=== PATIENT | female | born 1950 | race Caucasian/White ===

== ENCOUNTER 2020-09-21 13:03 | Inpatient (IN) | payer MEDICARE ==
[2020-09-21] MEDS ORDERED: Albuterol 200 PUFF (6.7GM INHALER) ONE (13:51)
[2020-09-21] MEDS ORDERED: Diltiazem 125 MG/25 ML ONE (13:59)
[2020-09-21 14:29] LABS: #Lymphocytes 1.5 thou/uL (1.20-3.40); #Monocytes 0.7 thou/uL (0.11-0.59); #Neutrophils 6.6 thou/uL (1.40-6.50); %Basophils 0.5 % (0.0-1.0); %Eosinophils 0.2 % (0.0-10.0); %Lymphocytes 16.9 % (21.0-51.0); %Monocytes 7.9 % (0.0-10.0); %Neutrophils 74.5 % (42.0-75.0); Hemoglobin 10.5 g/dL (12.0-16.0); Mean Corpuscular HGB CONC 31.5 g/dL (32.0-36.0); Mean Platelet Volume 8.9 fL (7.4-10.4); Platelet Count 241 thou/uL (130-400); RBC Distribution Width 13.1 % (11.5-14.5); Red Blood Cell (RBC) Count 3.27 mill/uL (4.20-5.40); White Blood Cell (WBC) Count 8.8 thou/uL (4.8-10.8)
--- NOTE | 2020-09-21 14:34 | RAD ---
XR Chest 1 View Portable HISTORY: Dyspnea COMPARISON: 06/10/2020 FINDINGS: The lungs are hypoexpanded. The heart size is stable. No pneumothoraces or large effusions are seen. Small effusions cannot be excluded. There are parenchymal densities in the left lung base.
[2020-09-21 14:55] LABS: ALT (SGPT) 13 U/L (8-55); AST (SGOT) 16 U/L (5-34); Albumin 3.2 g/dL (3.4-4.8); Alkaline Phosphatase 85 U/L (40-110); Anion Gap 13 mmol/L (10-20); BUN (Urea Nitrogen) 28 mg/dL (9.8-20.1); Bilirubin, Total 0.3 mg/dL (0.2-1.2); CK (CPK) 12 U/L (29-168); Calc. Creatinine Clearance 0 mL/min (70-130); Calcium 8.6 mg/dL (7.8-10.44); Carbon Dioxide 34 mmol/L (23-31); Chloride 97 mmol/L (98-107); Globulin 3.2 g/dL (2.4-3.5); Glucose 150 mg/dL (80-115); Potassium 6.1 mmol/L (3.5-5.1); Protein, Total 6.4 g/dL (6.0-8.3); Sodium 138 mmol/L (136-145)
[2020-09-21] MEDS ORDERED: Diltiazem 125 MG in Sodium Chloride 0.9% 100 ML IVPB SCH (16:45)
[2020-09-21] MEDS ORDERED: Ondansetron PF 4 MG/2 ML Vial IVP PRN (16:54)
[2020-09-21] MEDS ORDERED: Ondansetron ODT 4 MG TAB PO PRN (16:54)
[2020-09-21] MEDS ORDERED: Acetaminophen 325 MG TAB PO PRN (16:54)
[2020-09-21 17:33] LABS: Lactic Acid 0.9 mmol/L (0.5-2.2)
[2020-09-21 17:35] LABS: Troponin I 0.014 ng/mL (< 0.028)
--- NOTE | 2020-09-21 18:27 | HP ---
CHIEF COMPLAINT: Rapid heartbeat. HISTORY OF PRESENT ILLNESS: The history of present illness is very limited as the patient is not a good historian. She is a 70-year-old female who recently had a stroke. She could not really tell me exactly what month the stroke was in. She says it was June, July, August, but was not more specific than that, and with a stroke, she had right-sided weakness. She was transitioned over to the [facility], where apparently there they noticed that she had a rapid heartbeat and her blood pressure was not right and for this reason, they sent her over to the emergency room. There, it was found she was in atrial fibrillation with rapid ventricular response. She was given 10 mg of Cardizem IV, in which her heart rate improved. She is being admitted for further evaluation. I reviewed her records in our electronic system and could not see the prior admission at least at this time, it is unclear whether or not she has another chart under a slightly different name or birthday or the charts have not been merged. REVIEW OF SYSTEMS: All systems were reviewed and are negative except for that mentioned in the history of present illness. PAST MEDICAL HISTORY: Significant for cerebrovascular accident, atrial fibrillation, left hemiplegia, obesity, dyspepsia, and anemia. PAST SURGICAL HISTORY: Negative. ALLERGIES: NO KNOWN DRUG ALLERGIES. SOCIAL HISTORY: She is , has one child. She is a nonsmoker and she drinks 1 to 2 drinks a day occasionally. Her daughter, Lili Kidd would be her surrogate decision maker and she is a full code. FAMILY HISTORY: Significant for atrial fibrillation in her mother and also other heart trouble and a brain tumor. MEDICATIONS: Her medications are taken from the emergency room records and include: 1. Eliquis 5 mg daily. 2. Aspirin 81 mg daily. 3. Atorvastatin 10 mg daily. 4. Metoprolol 100 mg once a day. PHYSICAL EXAMINATION: GENERAL: She is awake and alert. She is oriented to person and place, but her sense of time is a bit off. She is obese and appears chronically ill. HEENT: Her pupils are equal, round, and reactive. Extraocular muscles are intact. Her sclerae anicteric. Throat, she has poor dentition. NECK: There is no adenopathy. No bruits. LUNGS: Clear to auscultation. No wheezing. No rales. CARDIOVASCULAR: Heart rate is rapid and irregular, and there was a grade 2/6 systolic murmur. ABDOMEN: Obese, soft, nontender, and nondistended. Positive for bowel sounds. No rebound or guarding. EXTREMITIES: There is round 2+ pitting edema. There is no calf tenderness. No joint effusions. NEUROLOGIC: Her muscle strength is 4/5 in the upper and lower extremity on the right. However, on the left, it is 5/5 and her cranial nerves are intact. SKIN AND INTEGUMENT: She has some mycotic nails, but otherwise no other significant lesions. LABORATORY DATA: On the CBC, the white blood cell count is 8.8, hemoglobin is 10.5, hematocrit is 33.2, platelet count is 241. Sodium is 138, potassium 6.1, chloride is 97, CO2 is 34, BUN of 28, creatinine 1.02, glucose is 150, and her proBNP is 1422. Her EKG was atrial fibrillation. She had a low voltage and no appreciable ST wave changes. On her EKG, she had a poor inspiratory effort. There are bilateral pleural effusions as well as some mild parenchymal disease. ASSESSMENT: This is a pleasant 70-year-old female, who presents with atrial fibrillation with rapid ventricular response. Also, she has been found to be hyperkalemic what appears to be some very mild renal insufficiency. She will be admitted. Since her heart rate has gone back up into the 120s, we will start her on a Cardizem drip as her blood pressure tolerates. Get an echocardiogram and continue Eliquis and consult Cardiology. Also get thyroid functions if these have not been done already. 1. Hyperkalemia. It is unclear the etiology. I do not see any medications in her profile that should precipitate this and her GFR is around 54. We will give her a dose of Kayexalate and recheck the potassium. If this remains elevated, we will consider Nephrology consult. 2. History of cerebrovascular accident with right-sided hemiplegia. We will continue her PT and OT. 3. Chronic anemia. This appears to be clinically stable and is macrocytic. We will review her records to see if this has been evaluated in the past. Job ID: [id number]
[2020-09-21 20:14] LABS: Potassium 5.9 mmol/L (3.5-5.1)
[2020-09-21 20:39] LABS: Troponin I 0.024 ng/mL (< 0.028)
[2020-09-21] MEDS: Famotidine 20 MG TAB PO SCH (22:50)
[2020-09-21] MEDS: Apixaban 5 MG TAB PO SCH (22:50)
[2020-09-22 04:21] LABS: #Lymphocytes 1.2 thou/uL (1.20-3.40); #Monocytes 0.5 thou/uL (0.11-0.59); #Neutrophils 3.6 thou/uL (1.40-6.50); %Basophils 0.4 % (0.0-1.0); %Eosinophils 0.4 % (0.0-10.0); %Lymphocytes 21.7 % (21.0-51.0); %Monocytes 10.1 % (0.0-10.0); %Neutrophils 67.4 % (42.0-75.0); Hemoglobin 10.3 g/dL (12.0-16.0); Mean Corpuscular HGB CONC 30.5 g/dL (32.0-36.0); Mean Corpuscular Hemoglobin 31.3 pg (27.0-31.0); Mean Platelet Volume 9.2 fL (7.4-10.4); Platelet Count 185 thou/uL (130-400); Red Blood Cell (RBC) Count 3.29 mill/uL (4.20-5.40); White Blood Cell (WBC) Count 5.3 thou/uL (4.8-10.8)
[2020-09-22 04:48] LABS: Anion Gap 13 mmol/L (10-20); BUN (Urea Nitrogen) 31 mg/dL (9.8-20.1); Calc. Creatinine Clearance 98 mL/min (70-130); Calcium 8.5 mg/dL (7.8-10.44); Carbon Dioxide 33 mmol/L (23-31); Cardiac Risk 3.2 (Less than 4.5); Chloride 100 mmol/L (98-107); Cholesterol 111 mg/dl (< 200 Desired); Glucose 93 mg/dL (80-115); HDL Cholesterol 35 mg/dL (>60 Neg Risk); LDL Cholesterol, Calculated 54 mg/dL; Potassium 5.1 mmol/L (3.5-5.1); Sodium 141 mmol/L (136-145); Triglycerides 111 mg/dL (Less than 150)
[2020-09-22] MEDS ORDERED: FLU VACC QS2020-21(65YR UP)/PF 240 MCG/0.7 ML SYRINGE IM ONE (09:00)
[2020-09-22] MEDS ORDERED: Digoxin 0.5 MG/2 ML AMP SLOW IVP SCH (09:15)
--- NOTE | 2020-09-22 09:22 | CON ---
DATE OF CONSULTATION: HISTORY OF PRESENT ILLNESS: The patient is a 70-year-old woman with a history of atrial fibrillation and cerebrovascular accident, who presented with palpitations. The patient states that several years ago she was diagnosed with atrial fibrillation. She states she has previously undergo several electrical cardioversions. She has been on chronic anticoagulation therapy. She had difficulty obtaining Eliquis and presented a few months ago with a cerebrovascular accident in [place]. The patient was restarted on Eliquis. The patient reported having increasing palpitations. She was noted to have a rapid irregular heart rhythm and she was presented for further evaluation. The patient denied having any chest pain or dyspnea. PAST MEDICAL HISTORY: 1. Cerebrovascular accident. 2. Hypertension. 3. Morbid obesity. 4. Left hemiplegia. PAST SURGICAL HISTORY: None. ALLERGIES: NONE. MEDICATIONS: 1. Eliquis 5 daily. 2. Aspirin 81 daily. 3. Lipitor 10 q.h.s.. 4. Metoprolol 100 XL daily. REVIEW OF SYSTEMS: Ten-point system otherwise unremarkable. No history of easy bruising or bleeding. PHYSICAL EXAMINATION: GENERAL: This is an obese woman, in no acute distress. VITAL SIGNS: Blood pressure of 114/66. HEART: Rate is irregular rate and rhythm with normal S1 and S2. ABDOMEN: Markedly distended. EXTREMITIES: Showed mild bilateral edema. VASCULAR: Radial pulses 2+. LABORATORY DATA: White blood cell count 5.3, hemoglobin 10.3, hematocrit 33.9, platelets 185. Sodium is 141, potassium 5.1, chloride 100, bicarbonate 33, BUN 31, creatinine 0.81, glucose is 93. Troponin 0.024. EKG atrial fibrillation with a rapid ventricular response. IMPRESSION: 1. Atrial fibrillation with a rapid ventricular response. 2. History of cerebrovascular accident. 3. Hypertension. 4. Left hemiplegia. 5. Morbid obesity. PLAN: This patient presents with recurrent atrial fibrillation. From a cardiac standpoint, her blood pressure is low and we would continue the patient on low- dose IV Cardizem. If the patient's heart rate is uncontrolled, we may need to consider repeat electrocardioversion. We will check the patient's echocardiogram. We will follow this patient with you through her hospitalization. Job ID: [id number] MTDD
[2020-09-22] MEDS: Apixaban 5 MG TAB PO SCH ×2 (09:56→20:47)
[2020-09-22] MEDS: Famotidine 20 MG TAB PO SCH ×2 (09:56→20:46)
--- NOTE | 2020-09-22 12:02 | PQF ---
CLINICAL DOCUMENTATION CLARIFICATION FORM: Dear Dr. NAVIN MORILLO Date: 09-22-20 Please exercise your independent, professional judgment in responding to the clarification form. Clinical indicators are provided on the bottom of this form for your review. Please check appropriate box(es): [ ] Acute Renal Failure (ARF) / Acute Kidney Injury (MARIA R) [ ] Insignificant Lab Values [ X] Other diagnosis hyperkalemia____ [ ] Unable to determine In addition, please specify: Present on Admission (POA): [ ] Yes [ X ] No [ ] Unable to determine For continuity of documentation, please document condition throughout progress notes and discharge summary. Thank You. To be completed by CDI/Coding staff for physician review: CLINICAL INDICATORS - SIGNS / SYMPTOMS / LABS / RESULTS AND LOCATION IN MR: GFR: 09-21-20: 54 09-22-20: 70 CREATININE: 09-21-20: 1.02 BUN: 09-21-20: 28 09-22-20: 31 H&P 09-21-20: A FIB WITH RVR. ALSO, SHE HAS BEEN FOUND TO BE HYPOKALEMIC WHAT APPEARS TO BE SOME VERY MILD RENAL INSUFFICIENCY. HYPERKALEMIA. IT IS UNCLEAR THE ETIOLOGY. I DO NOT SEE ANY MEDICATIONS IN HER PROFILE THAT SHOULD PRECIPITATE THIS AND HER GFR IS AROUND 54. WE WILL GIVE HER A DOSE OF KAYEXALATE AND RECHECK THE POTASSIUM. IF THIS REMAINS ELEVATED, WE WILL CONSIDER NEPHROLOGY CONSULT. RISK FACTORS / RESULTS AND LOCATION IN MR: H&P 09-21-20: A FIB WITH RVR. ALSO, SHE HAS BEEN FOUND TO BE HYPOKALEMIC WHAT APPEARS TO BE SOME VERY MILD RENAL INSUFFICIENCY. HYPERKALEMIA. IT IS UNCLEAR THE ETIOLOGY. I DO NOT SEE ANY MEDICATIONS IN HER PROFILE THAT SHOULD PRECIPITATE THIS AND HER GFR IS AROUND 54. WE WILL GIVE HER A DOSE OF KAYEXALATE AND RECHECK THE POTASSIUM. IF THIS REMAINS ELEVATED, WE WILL CONSIDER NEPHROLOGY CONSULT. TREATMENTS / RESULTS AND LOCATION IN MR: H&P 09-21-20: WE WILL CONSIDER NEPHROLOGY CONSULT. MONITORING LABS 09-21-20 AND 09-22-20 National Kid[employer] Guidelines for CKD Staging Stage I Kidney damage with normal or increased GFR GFR > 90 Stage II Kidney damage with mildly decreased GFR GFR 60-89 Stage III Kidney damage with moderately decreased GFR GFR 30-59 Stage IV Kidney damage with severely decreased GFR GFR 16-29 Stage V Kidney failure GFR<15 ESRD End Stage Renal Disease On dialysis Acute Renal Failure/Acute Kidney Failure defined as: Increases in SCr by (>) 0.3 mg/dl within 48 hours OR- Increases in SCr by (>) 1.5 times baseline, known or presumed to have occurred within the prior 7 days OR- Urine volume < 0.5 ml/kg/hour for 6 hours (KDIGO supplement 2012 for RIFLE/RICK criteria) CDS Signature: Maude Thomson Phone #: [phone] Date: 09-22-20 This is a permanent part of the Medical Record [facility]
[2020-09-22] MEDS: Digoxin 0.5 MG/2 ML AMP SLOW IVP SCH ×2 (12:13→14:18)
--- NOTE | 2020-09-22 16:50 | PDOC.HOSPP ---
- Subjective Encounter Date: 09/22/20 Encounter Time: 10:00 Subjective: Afib: The patient is still in afib. She states she had palpitations for a few days. No chest pain, no dizziness or lightheadedness. She is on diltiazem drip at 5 /hour She doesn't drink coffee, tea, do drugs She said she was at rehab prior to this, but was unable to state the reason - Objective Vital Signs & Weight: Vital Signs (12 hours) Temp Pulse Resp BP Pulse Ox 09/22/20 16:00 97.9 F 107 H 16 103/66 95 09/22/20 14:18 107 H 09/22/20 12:13 107 H 09/22/20 12:00 97.9 F 113 H 16 120/72 94 L 09/22/20 09:56 107 H 09/22/20 07:56 95 09/22/20 07:50 97.5 F L 107 H 16 114/66 98 Weight Admit Weight 211 lb 12.8 oz Weight 211 lb 12.8 oz I&O: 09/21/20 09/22/20 09/23/20 06:59 06:59 06:59 Intake Total 380 Balance 380 Result Diagrams: 09/22/20 03:53 09/22/20 03:53 Additional Labs: Accuchecks 09/21/20 20:54 POC Glucose 83 Hospitalist ROS - Review of Systems Constitutional: denies: fever, chills - Medication Medications: Active Medications Generic Name Dose Route Start Last Admin Trade Name Freq PRN Reason Stop Dose Admin Apixaban 5 mg 09/21/20 21:00 09/22/20 09:56 Apixaban 5 Mg Tab PO 5 mg BID DIANE Administration Famotidine 20 mg 09/21/20 21:00 09/22/20 09:56 Famotidine 20 Mg Tab PO 20 mg BID DIANE Administration - Exam General Appearance: NAD, awake alert Eye: PERRL, anicteric sclera ENT: normocephalic atraumatic, no oropharyngeal lesions Neck: supple, no JVD Heart: no murmur Heart - other findings: irregularly irregular Respiratory: CTAB, no wheezes, no rales, no ronchi Gastrointestinal: soft, non-tender, non-distended, normal bowel sounds Extremities: no cyanosis, no clubbing, no edema Skin: normal turgor, no lesions, no rashes Neurological: cranial nerve grossly intact, normal sensation to touch, no focal deficits, no new deficit Neurological - other findings: mild trouble with word finding. Hosp A/P - Plan ECHO: moderate MR, moderate TR, EF 55-60% This is a 70 year old female who presented to the hospital with atrial fibrillation Atrial fibrillation - she is on diltiazem drip at 5/hour - she was started on digoxin with cardiology. Will add oral diltiazem, attempt to wean off the drip - continue aspirin/eliquis Recent stroke - continue aspirin andeliquis Macrocytic anemia - hemoglobin 10, MCV 103. Check vitamin B12/folate/ TSH
[2020-09-23 04:49] LABS: Hemoglobin 10.5 g/dL (12.0-16.0); Mean Corpuscular HGB CONC 31.1 g/dL (32.0-36.0); Mean Corpuscular Hemoglobin 31.3 pg (27.0-31.0); Mean Platelet Volume 9.5 fL (7.4-10.4); Platelet Count 207 thou/uL (130-400); RBC Distribution Width 12.9 % (11.5-14.5); Red Blood Cell (RBC) Count 3.36 mill/uL (4.20-5.40); White Blood Cell (WBC) Count 7.1 thou/uL (4.8-10.8)
[2020-09-23 05:12] LABS: Anion Gap 13 mmol/L (10-20); BUN (Urea Nitrogen) 21 mg/dL (9.8-20.1); Calc. Creatinine Clearance 113 mL/min (70-130); Calcium 8.4 mg/dL (7.8-10.44); Carbon Dioxide 32 mmol/L (23-31); Chloride 98 mmol/L (98-107); Glucose 82 mg/dL (80-115); Potassium 4.6 mmol/L (3.5-5.1); Sodium 138 mmol/L (136-145)
[2020-09-23 05:34] LABS: Thyroid Stimulating Hormone 1.1604 uIU/mL (0.35-4.94)
[2020-09-23] MEDS: Famotidine 20 MG TAB PO SCH ×2 (08:48→20:00)
[2020-09-23] MEDS: Apixaban 5 MG TAB PO SCH ×2 (08:49→20:00)
[2020-09-23] MEDS ORDERED: Digoxin 0.5 MG/2 ML AMP SLOW IVP SCH (09:00)
--- NOTE | 2020-09-23 13:03 | PDOC.HOSPP ---
- Subjective Encounter Date: 09/23/20 Encounter Time: 13:00 Subjective: F/u: afib The patient is off cardizem drip. Heart rate is in the 80's. Per cardiology he plans to cardiovert her on Friday The patient denies palpitations or shortness of breath She is on 3.5L of oxygen saturating 100%. She denies cough, chest pain. - Objective Vital Signs & Weight: Vital Signs (12 hours) Temp Pulse Resp BP Pulse Ox 09/23/20 08:49 97 09/23/20 08:00 97.7 F 97 18 130/71 97 09/23/20 04:00 97.5 F L 108 H 21 H 119/63 98 Weight Admit Weight 211 lb 12.8 oz Weight 214 lb 8 oz I&O: 09/22/20 09/23/20 09/24/20 06:59 06:59 06:59 Intake Total 380 290 597 Balance 380 290 597 Result Diagrams: 09/23/20 03:54 09/23/20 03:54 Hospitalist ROS - Review of Systems Constitutional: denies: fever, chills - Medication Medications: Active Medications Generic Name Dose Route Start Last Admin Trade Name Freq PRN Reason Stop Dose Admin Apixaban 5 mg 09/21/20 21:00 09/23/20 08:49 Apixaban 5 Mg Tab PO 5 mg BID DIANE Administration Digoxin 0.25 mg 09/23/20 09:00 09/23/20 08:49 Digoxin 0.5 Mg/2 Ml Amp SLOW IVP 0.25 mg DAILY DIANE Administration Famotidine 20 mg 09/21/20 21:00 09/23/20 08:48 Famotidine 20 Mg Tab PO 20 mg BID DIANE Administration - Exam General Appearance: NAD, awake alert Eye: PERRL, anicteric sclera ENT: normocephalic atraumatic, no oropharyngeal lesions Neck: no JVD Heart: RRR, no murmur, no gallops, no rubs Respiratory: CTAB, no wheezes, no rales, no ronchi Gastrointestinal: soft, non-tender, non-distended, normal bowel sounds Extremities: no cyanosis, no clubbing, no edema Skin: normal turgor, no lesions, no rashes Hosp A/P - Plan ECHO: moderate MR, moderate TR, EF 55-60% This is a 70 year old female who presented to the hospital with atrial fibr illation Atrial fibrillation -she is off cardizem drip. Continue digoxin . Cardiology plans to cardiovert her on Friday Recent stroke - continue aspirin andeliquis Macrocytic anemia - hemoglobin 10, MCV 103. Vitamin B12/folate/TSH normal
[2020-09-24 04:36] LABS: #Lymphocytes 1.2 thou/uL (1.20-3.40); #Monocytes 0.5 thou/uL (0.11-0.59); %Basophils 0.2 % (0.0-1.0); %Eosinophils 0.1 % (0.0-10.0); %Lymphocytes 21.1 % (21.0-51.0); %Monocytes 9.1 % (0.0-10.0); %Neutrophils 69.6 % (42.0-75.0); Hemoglobin 11.2 g/dL (12.0-16.0); Mean Corpuscular HGB CONC 31.7 g/dL (32.0-36.0); Mean Corpuscular Hemoglobin 31.8 pg (27.0-31.0); Mean Platelet Volume 9.3 fL (7.4-10.4); Platelet Count 193 thou/uL (130-400); Red Blood Cell (RBC) Count 3.51 mill/uL (4.20-5.40); White Blood Cell (WBC) Count 5.7 thou/uL (4.8-10.8)
[2020-09-24 04:58] LABS: Anion Gap 11 mmol/L (10-20); BUN (Urea Nitrogen) 16 mg/dL (9.8-20.1); Calc. Creatinine Clearance 117 mL/min (70-130); Calcium 8.4 mg/dL (7.8-10.44); Carbon Dioxide 34 mmol/L (23-31); Chloride 99 mmol/L (98-107); Glucose 83 mg/dL (80-115); Magnesium 1.8 mg/dL (1.6-2.6); Potassium 4.8 mmol/L (3.5-5.1); Sodium 139 mmol/L (136-145)
[2020-09-24] MEDS: Famotidine 20 MG TAB PO SCH ×2 (08:37→20:26)
[2020-09-24] MEDS: Apixaban 5 MG TAB PO SCH ×2 (08:38→20:26)
--- NOTE | 2020-09-24 14:44 | PDOC.HOSPP ---
- Subjective Encounter Date: 09/24/20 Subjective: Doing very well. No complaints. No chest pain. - Objective Vital Signs & Weight: Vital Signs (12 hours) Temp Pulse Resp BP Pulse Ox 09/24/20 12:00 88 133/77 09/24/20 08:00 97.6 F 87 17 144/82 H 96 09/24/20 03:07 97.8 F 89 18 110/73 97 Weight Admit Weight 211 lb 12.8 oz Weight 214 lb 15.211 oz I&O: 09/23/20 09/24/20 09/25/20 06:59 06:59 06:59 Intake Total 290 597 Output Total 575 Balance 290 597 -575 Result Diagrams: 09/24/20 03:54 09/24/20 03:54 Hospitalist ROS - Medication Medications: Active Medications Generic Name Dose Route Start Last Admin Trade Name Freq PRN Reason Stop Dose Admin Acetaminophen 650 mg 09/21/20 16:54 09/23/20 20:00 Acetaminophen 325 Mg Tab PO 650 mg Q4H PRN Administration Headache/Fever/Mild Pain (1-3) Apixaban 5 mg 09/21/20 21:00 09/24/20 08:38 Apixaban 5 Mg Tab PO 5 mg BID DIANE Administration Famotidine 20 mg 09/21/20 21:00 09/24/20 08:37 Famotidine 20 Mg Tab PO 20 mg BID DIANE Administration Metoprolol Succinate 50 mg 09/23/20 21:00 09/24/20 08:38 Metoprolol Succinate Xl 50 Mg Tab PO 50 mg BID DIANE Administration Sodium Chloride 10 ml 09/23/20 21:00 09/24/20 08:37 Flush - Normal Saline 10 Ml Syringe IVF 10 ml Q12HR DIANE Administration - Exam General Appearance: NAD, awake alert Heart: no murmur, no gallops, no rubs, irregular Respiratory: CTAB, no wheezes, no rales, no ronchi, normal chest expansion, no tachypnea, normal percussion Gastrointestinal: soft, non-tender, non-distended, normal bowel sounds, no palpable masses, no hepatomegaly, no splenomegaly, no bruit Extremities: no cyanosis, no clubbing, no edema Hosp A/P (1) Atrial fibrillation Code(s): I48.91 - UNSPECIFIED ATRIAL FIBRILLATION Status: Acute (2) History of CVA (cerebrovascular accident) Code(s): Z86.73 - PRSNL HX OF TIA (TIA), AND CEREB INFRC W/O RESID DEFICITS Status: Acute (3) Macrocytic anemia Code(s): D53.9 - NUTRITIONAL ANEMIA, UNSPECIFIED Status: Acute - Plan Atrial fibrillation: Patient was originally on Cardizem drip. She is currently on digoxin. Rate controlled. Plan is for JENNIFER and cardioversion tomorrow, 09/25/2020. Recent CVA: Continue with aspirin and Eliquis
[2020-09-25 04:49] LABS: #Lymphocytes 1.4 thou/uL (1.20-3.40); #Monocytes 0.6 thou/uL (0.11-0.59); #Neutrophils 4.6 thou/uL (1.40-6.50); %Basophils 0.2 % (0.0-1.0); %Eosinophils 0.5 % (0.0-10.0); %Lymphocytes 20.6 % (21.0-51.0); %Monocytes 9.5 % (0.0-10.0); %Neutrophils 69.2 % (42.0-75.0); Hemoglobin 10.5 g/dL (12.0-16.0); Mean Corpuscular HGB CONC 31.8 g/dL (32.0-36.0); Mean Corpuscular Hemoglobin 31.9 pg (27.0-31.0); Mean Platelet Volume 8.9 fL (7.4-10.4); Platelet Count 197 thou/uL (130-400); RBC Distribution Width 12.9 % (11.5-14.5); Red Blood Cell (RBC) Count 3.29 mill/uL (4.20-5.40); White Blood Cell (WBC) Count 6.6 thou/uL (4.8-10.8)
[2020-09-25 05:08] LABS: Anion Gap 12 mmol/L (10-20); BUN (Urea Nitrogen) 15 mg/dL (9.8-20.1); Calc. Creatinine Clearance 109 mL/min (70-130); Calcium 8.2 mg/dL (7.8-10.44); Carbon Dioxide 33 mmol/L (23-31); Chloride 99 mmol/L (98-107); Glucose 98 mg/dL (80-115); Sodium 139 mmol/L (136-145)
[2020-09-25] MEDS: Famotidine 20 MG TAB PO SCH ×2 (08:00→20:11)
[2020-09-25] MEDS: Apixaban 5 MG TAB PO SCH ×2 (08:00→20:12)
[2020-09-25] MEDS ORDERED: PROPOFOL 40 ML ONE (10:02)
[2020-09-25] MEDS ORDERED: Lidocaine Viscous Sol 2% 15 ml UD Cup ONE (10:02)
[2020-09-25] MEDS ORDERED: Flecainide 50 MG TAB PO SCH (10:30)
[2020-09-25] MEDS ORDERED: PROPOFOL 200 MG/20 ML VIAL ONE (11:19)
--- NOTE | 2020-09-25 12:25 | OP ---
DATE OF PROCEDURE: 09/25/2020 PROCEDURE PERFORMED: Transesophageal echocardiogram INDICATIONS FOR PROCEDURE: A 70-year-old woman with mitral regurgitation. DESCRIPTION OF PROCEDURE: The patient was taken to the PACU. The patient was sedated by Anesthesiology. A transesophageal probe was placed into the distal esophagus and stomach. Echocardiographic images were obtained. The transesophageal probe was removed. FINDINGS: 1. Normal left ventricular systolic function. 2. Biatrial enlargement. 3. Normal mitral and aortic valves. 4. Moderate tricuspid regurgitation. 5. Mild mitral regurgitation. 6. Trivial aortic regurgitation. 7. No thrombus noted in left atrial or left atrial appendage. 8. Atherosclerotic debris in the descending aorta. IMPRESSION: Mild mitral regurgitation with no formed thrombus in the left atrium or left atrial appendage. Job ID: [id number] MTDD
--- NOTE | 2020-09-25 12:26 | OP ---
DATE OF PROCEDURE: 09/25/2020 PROCEDURE PERFORMED: Electrocardioversion. INDICATIONS FOR PROCEDURE: The patient is a 70-year-old woman with paroxysmal atrial fibrillation. DESCRIPTION OF PROCEDURE: The patient was taken to the PACU. The patient sedated by Anesthesiology. The patient was shocked with 200 joules twice of synchronized electricity. The patient converted to normal sinus rhythm. IMPRESSION: Successful electrocardioversion. Job ID: [id number] MTDD
--- NOTE | 2020-09-25 15:18 | PDOC.HOSPP ---
- Subjective Encounter Date: 09/25/20 Encounter Time: 12:30 Subjective: Patient up in bed no complaints - Objective Vital Signs & Weight: Vital Signs (12 hours) Temp Pulse Resp BP Pulse Ox 09/25/20 11:17 98.4 F 81 18 132/71 93 L 09/25/20 07:53 97.6 F 80 16 144/71 H 99 Weight Admit Weight 211 lb 12.8 oz Weight 209 lb 1.6 oz I&O: 09/24/20 09/25/20 09/26/20 06:59 06:59 06:59 Intake Total 597 30 Output Total 1325 Balance 597 -1295 Result Diagrams: 09/25/20 03:56 09/25/20 03:56 Hospitalist ROS - Review of Systems Cardiovascular: denies: chest pain, palpitations, orthopnea, paroxysmal noc. dyspnea, edema, light headedness, other Gastrointestinal: denies: nausea, vomiting, abdominal pain, diarrhea, constipation, melena, hematochezia, other Genitourinary: denies: dysuria, frequency, incontinence, hematuria, retention, o ther - Medication Medications: Active Medications Generic Name Dose Route Start Last Admin Trade Name Freq PRN Reason Stop Dose Admin Acetaminophen 650 mg 09/21/20 16:54 09/23/20 20:00 Acetaminophen 325 Mg Tab PO 650 mg Q4H PRN Administration Headache/Fever/Mild Pain (1-3) Apixaban 5 mg 09/21/20 21:00 09/25/20 08:00 Apixaban 5 Mg Tab PO 5 mg BID DIANE Administration Famotidine 20 mg 09/21/20 21:00 09/25/20 08:00 Famotidine 20 Mg Tab PO 20 mg BID DIANE Administration Metoprolol Succinate 50 mg 09/23/20 21:00 09/25/20 08:00 Metoprolol Succinate Xl 50 Mg Tab PO 50 mg BID DIANE Administration Sodium Chloride 10 ml 09/23/20 21:00 09/25/20 08:00 Flush - Normal Saline 10 Ml Syringe IVF 10 ml Q12HR DIANE Administration - Exam Neck: negative: supple, symmetric, no JVD, no thyromegaly, no lymphadenopathy, no carotid bruit, JVD Heart: negative: RRR, no murmur, no gallops, no rubs, normal peripheral pulses, irregular, diminshed peripheral pulses, murmur present, II/IV, III/IV Respiratory: negative: CTAB, no wheezes, no rales, no ronchi, normal chest expansion, no tachypnea, normal percussion, rales, rhonchi, tachypneic, wheezes Gastrointestinal: negative: soft, non-tender, non-distended, normal bowel sounds, no palpable masses, no hepatomegaly, no splenomegaly, no bruit, no guarding, no rigidity, tender to palpation, distended, diminished bowl sounds, voluntary guarding Hosp A/P (1) Atrial fibrillation Code(s): I48.91 - UNSPECIFIED ATRIAL FIBRILLATION Status: Acute (2) History of CVA (cerebrovascular accident) Code(s): Z86.73 - PRSNL HX OF TIA (TIA), AND CEREB INFRC W/O RESID DEFICITS Status: Acute (3) Macrocytic anemia Code(s): D53.9 - NUTRITIONAL ANEMIA, UNSPECIFIED Status: Acute - Plan Patient underwent cardioversion. We will continue Eliquis. Possible discharge in a.m.
[2020-09-25] MEDS: Atorvastatin Calcium 10 MG TAB PO SCH (20:12)
[2020-09-25] MEDS: Flecainide 50 MG TAB PO SCH (20:12)
[2020-09-26 04:52] LABS: #Lymphocytes 1.4 thou/uL (1.20-3.40); #Monocytes 0.6 thou/uL (0.11-0.59); #Neutrophils 5.9 thou/uL (1.40-6.50); %Basophils 0.2 % (0.0-1.0); %Eosinophils 0.1 % (0.0-10.0); %Lymphocytes 17.3 % (21.0-51.0); %Neutrophils 74.3 % (42.0-75.0); Mean Corpuscular HGB CONC 31.3 g/dL (32.0-36.0); Mean Corpuscular Hemoglobin 31.2 pg (27.0-31.0); Mean Corpuscular Volume 99.8 fL (78.0-98.0); Mean Platelet Volume 8.7 fL (7.4-10.4); Platelet Count 203 thou/uL (130-400); RBC Distribution Width 12.9 % (11.5-14.5); Red Blood Cell (RBC) Count 3.52 mill/uL (4.20-5.40); White Blood Cell (WBC) Count 7.9 thou/uL (4.8-10.8)
[2020-09-26 05:12] LABS: Anion Gap 11 mmol/L (10-20); BUN (Urea Nitrogen) 13 mg/dL (9.8-20.1); Calc. Creatinine Clearance 121 mL/min (70-130); Calcium 8.7 mg/dL (7.8-10.44); Carbon Dioxide 33 mmol/L (23-31); Chloride 98 mmol/L (98-107); Glucose 87 mg/dL (80-115); Potassium 4.4 mmol/L (3.5-5.1); Sodium 138 mmol/L (136-145)
[2020-09-26 05:34] VITALS: BMI 29.2
--- NOTE | 2020-09-26 07:47 | RAD ---
Exam: Chest one view HISTORY:Dyspnea Comparison: 09/21/2020 FINDINGS: Cardiac silhouette:Cardiomegaly Aorta: Atherosclerosis Pulmonary vessels: Normal Costophrenic angles: Bibasilar pleural effusions LUNGS: Lung volumes are diminished. Scattered interstitial opacities may represent accentuation of th e interstitium due to diminished lung volumes. Interstitial edema and/or infiltrate cannot be excluded. Pneumothorax: None Osseous abnormalities: None IMPRESSION: 1. Bilateral pleural effusions. Cardiomegaly. Correlate for congestive heart failure. 2. Diminished lung volumes. Accentuation of the interstitium may be due to low lung volumes. Composed interstitial edema and/or infiltrate cannot be excluded.
[2020-09-26] MEDS ORDERED: Furosemide 40 MG/4 ML VIAL SLOW IVP SCH (08:00)
[2020-09-26] MEDS: Famotidine 20 MG TAB PO SCH ×2 (09:44→21:21)
[2020-09-26] MEDS: Apixaban 5 MG TAB PO SCH ×2 (09:44→21:21)
[2020-09-26] MEDS: Flecainide 50 MG TAB PO SCH ×2 (09:44→21:21)
[2020-09-26] MEDS: Atorvastatin Calcium 10 MG TAB PO SCH (21:21)
[2020-09-27] MEDS: Apixaban 5 MG TAB PO SCH ×2 (08:41→20:12)
[2020-09-27] MEDS: Flecainide 50 MG TAB PO SCH ×2 (08:41→20:12)
[2020-09-27] MEDS: Famotidine 20 MG TAB PO SCH ×2 (08:41→20:12)
[2020-09-27] MEDS ORDERED: Furosemide 40 MG/4 ML VIAL SLOW IVP SCH (09:00)
--- NOTE | 2020-09-27 09:44 | PDOC.HOSPP ---
- Subjective Encounter Date: 09/26/20 Encounter Time: 10:30 Subjective: pt up in bed no complains - Objective Vital Signs & Weight: Vital Signs (12 hours) Temp Pulse Resp BP Pulse Ox 09/27/20 07:50 98.2 F 87 15 162/77 H 93 L 09/27/20 04:00 98.4 F 72 20 144/76 H 91 L 09/26/20 23:28 69 140/73 93 L Weight Admit Weight 211 lb 12.8 oz Weight 209 lb 12.8 oz I&O: 09/26/20 09/27/20 09/28/20 06:59 06:59 06:59 Intake Total 480 750 Output Total 1100 1900 Balance -620 -1150 Result Diagrams: 09/26/20 03:53 09/26/20 03:53 Hospitalist ROS - Review of Systems Respiratory: denies: cough, dry, shortness of breath, hemoptysis, SOB with excertion, pleuritic pain, sputum, wheezing, other Cardiovascular: denies: chest pain, palpitations, orthopnea, paroxysmal noc. dyspnea, edema, light headedness, other Gastrointestinal: denies: nausea, vomiting, abdominal pain, diarrhea, constipation, melena, hematochezia, other - Medication Medications: Active Medications Generic Name Dose Route Start Last Admin Trade Name Sauloq PRN Reason Stop Dose Admin Acetaminophen 650 mg 09/21/20 16:54 09/23/20 20:00 Acetaminophen 325 Mg Tab PO 650 mg Q4H PRN Administration Headache/Fever/Mild Pain (1-3) Apixaban 5 mg 09/21/20 21:00 09/27/20 08:41 Apixaban 5 Mg Tab PO 5 mg BID DIANE Administration Atorvastatin Calcium 10 mg 09/25/20 21:00 09/26/20 21:21 Atorvastatin Calcium 10 Mg Tab PO 10 mg HS DIANE Administration Famotidine 20 mg 09/21/20 21:00 09/27/20 08:41 Famotidine 20 Mg Tab PO 20 mg BID DIANE Administration Flecainide Acetate 50 mg 09/25/20 21:00 09/27/20 08:41 Flecainide 50 Mg Tab PO 50 mg Q12HR DIANE Administration Furosemide 40 mg 09/27/20 09:00 09/27/20 08:41 Furosemide 40 Mg/4 Ml Vial SLOW IVP 40 mg DAILY DIANE Administration Metoprolol Succinate 50 mg 09/23/20 21:00 09/27/20 08:41 Metoprolol Succinate Xl 50 Mg Tab PO 50 mg BID DIANE Administration Sodium Chloride 10 ml 09/23/20 21:00 09/27/20 08:42 Flush - Normal Saline 10 Ml Syringe IVF 10 ml Q12HR DIANE Administration - Exam Heart: negative: RRR, no murmur, no gallops, no rubs, normal peripheral pulses, irregular, diminshed peripheral pulses, murmur present, II/IV, III/IV Respiratory: negative: CTAB, no wheezes, no rales, no ronchi, normal chest expansion, no tachypnea, normal percussion, rales, rhonchi, tachypneic, wheezes Gastrointestinal: negative: soft, non-tender, non-distended, normal bowel so unds, no palpable masses, no hepatomegaly, no splenomegaly, no bruit, no guarding, no rigidity, tender to palpation, distended, diminished bowl sounds, voluntary guarding Extremities: 2+ LE edema Hosp A/P (1) Atrial fibrillation Code(s): I48.91 - UNSPECIFIED ATRIAL FIBRILLATION Status: Acute (2) History of CVA (cerebrovascular accident) Code(s): Z86.73 - PRSNL HX OF TIA (TIA), AND CEREB INFRC W/O RESID DEFICITS Status: Acute (3) Macrocytic anemia Code(s): D53.9 - NUTRITIONAL ANEMIA, UNSPECIFIED Status: Acute - Plan Patient underwent cardioversion. We will continue Eliquis. Possible discharge in a.m. 09/26 pt doing well no complains. discharge when ok with cardiology
[2020-09-27] MEDS: Atorvastatin Calcium 10 MG TAB PO SCH (20:12)
[2020-09-28] MEDS: Famotidine 20 MG TAB PO SCH (09:13)
[2020-09-28] MEDS: Flecainide 50 MG TAB PO SCH (09:13)
[2020-09-28] MEDS: Apixaban 5 MG TAB PO SCH (09:13)
[2020-09-28 12:48] VITALS: BP 101/57; TEMP 97.4
--- NOTE | 2020-09-28 14:08 | PDOC.HOSPP ---
- Subjective Encounter Date: 09/27/20 Encounter Time: 11:20 Subjective: pt up in bed no complains - Objective Vital Signs & Weight: Vital Signs (12 hours) Temp Pulse Resp BP Pulse Ox 09/28/20 11:50 97.4 F L 83 18 101/57 L 100 09/28/20 09:24 97.5 F L 83 18 131/68 97 09/28/20 09:12 97.5 F L 83 18 131/68 97 09/28/20 04:00 97.6 F 77 18 102/70 96 Weight Admit Weight 211 lb 12.8 oz Weight 201 lb I&O: 09/27/20 09/28/20 09/29/20 06:59 06:59 06:59 Intake Total 750 240 Output Total 1900 Balance -1150 240 Result Diagrams: 09/26/20 03:53 09/26/20 03:53 Hospitalist ROS - Review of Systems Cardiovascular: denies: chest pain, palpitations, orthopnea, paroxysmal noc. dyspnea, edema, light headedness, other Gastrointestinal: denies: nausea, vomiting, abdominal pain, diarrhea, constipation, melena, hematochezia, other Genitourinary: denies: dysuria, frequency, incontinence, hematuria, retention, other - Medication Medications: Active Medications Generic Name Dose Route Start Last Admin Trade Name Freq PRN Reason Stop Dose Admin Acetaminophen 650 mg 09/21/20 16:54 09/23/20 20:00 Acetaminophen 325 Mg Tab PO 650 mg Q4H PRN Administration Headache/Fever/Mild Pain (1-3) Apixaban 5 mg 09/21/20 21:00 09/28/20 09:13 Apixaban 5 Mg Tab PO 5 mg BID DIANE Administration Atorvastatin Calcium 10 mg 09/25/20 21:00 09/27/20 20:12 Atorvastatin Calcium 10 Mg Tab PO 10 mg HS DIANE Administration Famotidine 20 mg 09/21/20 21:00 09/28/20 09:13 Famotidine 20 Mg Tab PO 20 mg BID DIANE Administration Flecainide Acetate 50 mg 09/25/20 21:00 09/28/20 09:13 Flecainide 50 Mg Tab PO 50 mg Q12HR DIANE Administration Sodium Chloride 10 ml 09/23/20 21:00 09/28/20 09:13 Flush - Normal Saline 10 Ml Syringe IVF 10 ml Q12HR DIANE Administration - Exam Neck: negative: supple, symmetric, no JVD, no thyromegaly, no lymphadenopathy, no carotid bruit, JVD Heart: negative: RRR, no murmur, no gallops, no rubs, normal peripheral pulses, irregular, diminshed peripheral pulses, murmur present, II/IV, III/IV Respiratory: negative: CTAB, no wheezes, no rales, no ronchi, normal chest expansion, no tachypnea, normal percussion, rales, rhonchi, tachypneic, wheezes Hosp A/P (1) Atrial fibrillation Code(s): I48.91 - UNSPECIFIED ATRIAL FIBRILLATION Status: Acute (2) History of CVA (cerebrovascular accident) Code(s): Z86.73 - PRSNL HX OF TIA (TIA), AND CEREB INFRC W/O RESID DEFICITS Status: Acute (3) Macrocytic anemia Code(s): D53.9 - NUTRITIONAL ANEMIA, UNSPECIFIED Status: Acute - Plan Patient underwent cardioversion. We will continue Eliquis. Possible discharge in a.m. 09/26 pt doing well no complains. discharge when ok with cardiology 09/27 pt went into afib rate controlled. possible discharge in am if ok with cardiology.
--- NOTE | 2020-09-28 14:10 | PDOC.DS.DS ---
Provider - Provider Date of Admission: 09/21/20 15:18 Date of Discharge: 09/28/20 Admitting Provider: Flynn Sorenson MD Primary Care Physician: Lizbeth Hua Course - Hospital Course Hospital Course: Patient is a 70-year-old female who came into the hospital with tachycardia. Patient is a alf resident. She was found to have A. fib with RVR. She was seen by cardiology and electrophysiology. Patient underwent a successful cardioversion using 200 J twice. However while she was in the hospital she converted back to A. fib rate controlled. At this time was discharged home with beta-blockers and anticoagulation. She will follow up with cardiology as outpatient. Resuscitation Status: 09/21/20 16:50 Resuscitation Status Routine Resuscitation Status: FULL: Full Resuscitation - Labs Lab Results: 09/26/20 03:53 09/26/20 03:53 Abnormal Lab Results - Last 48 hrs 09/27/20 04:02: B-Natriuretic Peptide 414.8 H - Physical Exam Vitals: Vital Signs (12 hours) Temp Pulse Resp BP Pulse Ox 09/28/20 11:50 97.4 F L 83 18 101/57 L 100 09/28/20 09:24 97.5 F L 83 18 131/68 97 09/28/20 09:12 97.5 F L 83 18 131/68 97 09/28/20 04:00 97.6 F 77 18 102/70 96 Weight Admit Weight 211 lb 12.8 oz Weight 201 lb Physical Exam: The patient was seen and examined on the day of discharge. Problem - Problem (1) Atrial fibrillation Code(s): I48.91 - UNSPECIFIED ATRIAL FIBRILLATION Status: Acute (2) History of CVA (cerebrovascular accident) Code(s): Z86.73 - PRSNL HX OF TIA (TIA), AND CEREB INFRC W/O RESID DEFICITS Status: Acute (3) Macrocytic anemia Code(s): D53.9 - NUTRITIONAL ANEMIA, UNSPECIFIED Status: Acute Plan - Discharge Medications Prescriptions: Furosemide [Lasix] 40 mg PO DAILY #30 tablet Metoprolol Succinate [Toprol XL] 75 mg PO BID #60 tab Home Medications: Medication Instructions Recorded Confirmed Type Acetaminophen [Tylenol] 325 mg PO Q4HR 09/21/20 09/21/20 History Apixaban [Eliquis] 5 mg PO BID 09/21/20 09/21/20 History Aspirin 81 mg PO DAILY 09/21/20 09/21/20 History Atorvastatin Calcium 10 mg PO DAILY 09/21/20 09/21/20 History Calcium Carbonate [Calcium] 500 mg PO Q4HR 09/21/20 09/21/20 History Ipratropium/Albuterol Sulfate 3 ml NEB QID PRN 09/21/20 09/21/20 History Mag Hydrox/Al Hydrox/Simeth 30 ml PO Q4HR 09/21/20 09/21/20 History [Maalox Plus] Magnesium Oxide 400 mg PO BID 09/21/20 09/21/20 History Flecainide [Tambocor] 50 mg PO Q12HR tab 09/27/20 Rx Furosemide [Lasix] 40 mg PO DAILY #30 tablet 09/27/20 Rx Metoprolol Succinate [Toprol XL] 75 mg PO BID #60 tab 09/28/20 Rx Allergies: No Known Allergies Allergy (Unverified 09/21/20 16:51) - Discharge Instructions Activity:: Activity as Tolerated Nourishment:: Heart Healthy Diet - Follow up Plan Referrals: [facility] [place] [facility] [Other] (Returning to long term placement.) Lizbeth Hua [Primary Care Provider] - (Following pcp at the [facility] [place] for snf placement.) Alfonso Walker MD [Active] - 2-3 Weeks (Please call the office and schedule a follow up appointment) Disposition: HOME Quality - Care Measures CORE MEASURES:: N/A
--- NOTE | 2020-09-30 15:05 | EKG ---
Test Reason : Blood Pressure : / mmHG Vent. Rate : 154 BPM Atrial Rate : 141 BPM P-R Int : 000 ms QRS Dur : 064 ms QT Int : 268 ms P-R-T Axes : 000 -15 -23 degrees QTc Int : 429 ms Atrial fibrillation with rapid ventricular response Low voltage QRS Septal infarct , age undetermined Abnormal ECG Confirmed by GEENA Kaba, LAZARUS ([id number]), editorial assistant AALIYAH RAWLS ([id number]) on 09/30/2020 3:05:22 PM Referred By: Confirmed By:LAZARUS SEAY M.D.
== END 2020-09-28 14:15 | DRG 309 ==
LOC: ERS 13:03 → ERHOLD 15:18 → 2NO 18:31
PROVIDERS: ADMIT Internal Medicine; ATTEND Internal Medicine
PROC: 5A2204Z Restoration of Cardiac Rhythm, Single (ICD-10-PCS; principal; 2020-09-25)
PROC: B24BZZ4 Ultrasonography of Heart with Aorta, Transesophageal (ICD-10-PCS; 2020-09-25)
DX: I48.0 Paroxysmal atrial fibrillation (principal); I69.354 Hemiplegia and hemiparesis following cerebral infarction affecting left non-dominant side; D53.9 Nutritional anemia, unspecified; I08.3 Combined rheumatic disorders of mitral, aortic and tricuspid valves; E87.5 Hyperkalemia; I50.9 Heart failure, unspecified; E66.01 Morbid (severe) obesity due to excess calories; Z68.28 Body mass index [BMI] 28.0-28.9, adult; Z79.899 Other long term (current) drug therapy; Z79.01 Long term (current) use of anticoagulants; Z79.82 Long term (current) use of aspirin; Z82.49 Family history of ischemic heart disease and other diseases of the circulatory system
CPT/HCPCS: 36415; 36416; 71045; 80048; 80061; 82550; 82607; 82746; 83605; 83735; 83880; 84443; 84484; 85025; 85027; 92960; 93005; 93010; 93306; 93312; 94760; 96374; J1160; J1940; J2704